=== PATIENT | male | born 1945 | race Caucasian/White ===

== ENCOUNTER → 2020-08-05 | Outpatient (CLI) | payer MEDICARE ==
[2015-05-17 01:25] VITALS: BP 138/90
[~2020-08-05] MED LIST: no home meds
== END ==
LOC: LAB 08:55
PROVIDERS: ATTEND Nurse Anesthetist, Certified Registered
DX: Z01.812 Encounter for preprocedural laboratory examination (principal); Z20.828 Contact with and (suspected) exposure to other viral communicable diseases; K42.9 Umbilical hernia without obstruction or gangrene
CPT/HCPCS: U0003

== ENCOUNTER → 2020-08-09 | Day surgery (SDC) | payer MEDICARE ==
[~2020-08-09] MED LIST changes: +ACETAMINOPHEN 500 MG TABLET PO ONE; +BUPIVACAINE-EPI 0.25%-1:200000 MPF 30 ML VIAL. ONE; +GLYCOPYRROLATE 1 MG/5 ML VIAL. ONE; +IPRATRPIUM/ALBUTEROL 0.5/2.5MG 3 ML NEBU. NEB PRN; +IV RINGERS SOLUTION,LACTATED 1,000 ML IV SCH; +LIDOCAINE 2% PF 5 ML VIAL. ONE; +MIDAZOLAM HCL PF 2 MG/2 ML VIAL. IV ONE; +MIDAZOLAM HCL PF 2 MG/2 ML VIAL. ONE; +NEOMY/BACITR/POLYMYXIN OINT PACKET. TP ONE; +NEOSTIGMINE 10 MG/10 ML VIAL. ONE; +ONDANSETRON PF 4 MG/2 ML VIAL. IV PRN; +ONDANSETRON PF 4 MG/2 ML VIAL. ONE; +PROPOFOL 10,000 MCG/ML (20ML) VIAL IV ONE; +ROCURONIUM 50 MG/5 ML VIAL. ONE; +SEVOFLURANE 31 TO 60 MINUTES. IH ONE; +SUCCINYLCHOLINE 200 MG/10 ML VIAL. ONE
--- NOTE | 2020-08-09 11:19 | PDOC1 ---
History of Present Illness Reason for Visit: Umbilical hernia repair History of Present Illness 75-year-old male with complaints of pain at the umbilicus and a small bulge is been present for a number of years Chief Complaint: Painful umbilical hernia Allergies: Coded Allergies: No Known Drug Allergies (Unverified , 05/16/15) Past Medical History Cardiac: No pertinent hx Pulmonary: No pertinent hx GI: Other (Hiatal hernia) Heme/Onc: No pertinent hx Hepatobiliary: No pertinent hx Psych: No pertinent hx Musculoskeletal: No pertinent hx Rheumatologic: No pertinent hx Infectious disease: No pertinent hx ENT: No pertinent hx Renal/: No pertinent hx Endocrine: No pertinent hx Dermatology: No pertinent hx Past Surgical History: No pertinent history Family History: No pertinent hx Past Social History Smoke: No Alcohol: none Lives: with Family Review of Systems Review Of Systems Fourteen system , review of systems has been reviewed. See HPI for pertinent positives and negative responses, other [place] all other systems are negative, non pertinent or non contributory Gastrointestinal: YES: Abdominal Pain Medications Current Medications Ondansetron HCl (Zofran) 4 mg PRN Q6HRS PRN IV Nausea, 1st Choice; Start 08/09/20 at 07:00; Stop 08/10/20 at 06:59 Albuterol/ Ipratropium (Duoneb) 3 ml 1X PRN PRN NEB Shortness of Breath; Start 08/09/20 at 07:00; Stop 08/10/20 at 06:59 Midazolam HCl (Versed) 2 mg 1X ONCE IV ; Start 08/09/20 at 07:00; Stop 08/09/20 at 07:01; Status DC Lactated Ringer's 1,000 ml @ 125 mls/hr Q8H IV Last administered on 08/09/20at 10:53; Start 08/09/20 at 07:00; Stop 08/10/20 at 06:59 Acetaminophen (Tylenol) 1,000 mg 1X ONCE PO Last administered on 08/09/20at 10:42; Start 08/09/20 at 07:30; Stop 08/09/20 at 07:31; Status DC Fentanyl Citrate (Fentanyl 2ml Vial) 100 mcg STK-MED ONCE .ROUTE ; Start 08/09/20 at 10:59; Stop 08/09/20 at 11:00; Status DC Midazolam HCl (Versed) 2 mg STK-MED ONCE .ROUTE ; Start 08/09/20 at 11:00; Stop 08/09/20 at 11:00; Status DC Cefazolin Sodium/ Dextrose 50 ml @ As Directed STK-MED ONCE IV ; Start 08/09/20 at 11:07; Stop 08/09/20 at 11:07; Status DC Active Scripts Active Reported [no home meds] No Known Medications Prior To Admisstion (Info) Each 1 Each Exam Vital Signs Vital Signs Date Time Temp Pulse Resp B/P (MAP) Pulse Ox O2 Delivery O2 Flow Rate FiO2 08/09/20 10:45 97.5 85 22 139/85 (103) 99 Room Air General Appearance: Alert, Oriented X3, Cooperative, No acute distress HEENT: Atraumatic, EOMI Respiratory: Clear to auscultation, Normal air movement Heart: Regular rate, No murmurs Abdominal: Normal bowel sounds, Soft, Other (Small umbilical hernia tender to palpation) Extremities: No edema Rectal Exam: Deferred, not indicated Skin: No significant lesion Neuro: Normal speech Psych/Mental Status: Mental status NL Assessment/Plan Assessment/Plan Umbilical hernia plan repair COURSE Allergies Coded Allergies Type Severity Reaction Last Updated Verified No Known Drug Allergies 05/16/15 No Current Medications Medications (Trade) Dose Ordered Sig/Chad Route PRN Reason Start Time Stop Time Status Last Admin Dose Admin Ondansetron HCl (Zofran) 4 mg PRN Q6HRS PRN IV Nausea, 1st Choice 08/09/20 07:00 08/10/20 06:59 Albuterol/ Ipratropium (Duoneb) 3 ml 1X PRN PRN NEB Shortness of Breath 08/09/20 07:00 08/10/20 06:59 Midazolam HCl (Versed) 2 mg 1X ONCE IV 08/09/20 07:00 08/09/20 07:01 DC Lactated Ringer's 1,000 ml @ 125 mls/hr Q8H IV 08/09/20 07:00 08/10/20 06:59 08/09/20 10:53 Acetaminophen (Tylenol) 1,000 mg 1X ONCE PO 08/09/20 07:30 08/09/20 07:31 DC 08/09/20 10:42 Fentanyl Citrate (Fentanyl 2ml Vial) 100 mcg STK-MED ONCE .ROUTE 08/09/20 10:59 08/09/20 11:00 DC Midazolam HCl (Versed) 2 mg STK-MED ONCE .ROUTE 08/09/20 11:00 08/09/20 11:00 DC Cefazolin Sodium/ Dextrose 50 ml @ As Directed STK-MED ONCE IV 08/09/20 11:07 08/09/20 11:07 DC Orders Procedure Category Date Status Time Vital Signs, Per [facility] 08/08/20 In Process Protocol 12:30 Pulse Oximetry: [facility] 08/08/20 In Process Standing Order 12:30 Reverberatory Furnace Operator [facility] 08/08/20 In Process 12:30 Elevate Head Of Bed [facility] 08/08/20 In Process 12:30 Discharge From [facility] 08/08/20 In Process Hospital 12:30 Anesthesia Adult [facility] 08/08/20 In Process Pre-Op Pr 12:30 Vital Signs, Per [facility] 08/08/20 In Process Protocol 12:30 Pulse Ox - [facility] 08/08/20 In Process Intermittent 12:30 Ondansetron Pf PHA 08/09/20 In Process (Zofran) 07:00 Ipratrpium/Albuterol PHA 08/09/20 In Process 0.5/2.5mg (Duoneb) 07:00 Midazolam Hcl Pf PHA 08/09/20 Complete (Versed) 07:00 Iv Ringers PHA 08/09/20 In Process Solution,Lactated (Iv 07:00 Acetaminophen PHA 08/09/20 Complete (Tylenol) 07:30 Fentanyl Pf (Fentanyl PHA 08/09/20 Complete 2ml Vial) 10:59 Midazolam Hcl Pf PHA 08/09/20 Complete (Versed) 11:00 Cefazolin 2gm Premix PHA 08/09/20 Complete (Ancef 2gm Premix) 11:07 Vital Signs Date Time Temp Pulse Resp B/P (MAP) Pulse Ox O2 Delivery O2 Flow Rate FiO2 08/09/20 10:45 97.5 85 22 139/85 (103) 99 Room Air Justification of Admission: Justification of Admission: Justification of Admission Dx: N/A CASTRO SPANGLER MD Aug 09, 2020 11:19
--- NOTE | 2020-08-09 11:58 | PDOC4 ---
Operative Report DATE August 092020 at 11 55 Preop Diagnosis Umbilical hernia Post-op Diagnosis Same Operation Performed Umbilical hernia repair Dictation: Patient is 75-year-old male with umbilical hernia procedure of umbilical hernia repair was explained to the patient detail was benefits were also discussed including bleeding infection alternatives to this procedure also discussed with patient who seemed to understand and gave a verbal written consent to have the procedure performed. Patient was taken to the operating room placed in the supine position general anesthesia was initiated once patient was sleeping in bed his abdomen was prepped and draped usual sterile fashion using ChloraPrep. Area around the umbilicus was injected with quarter percent Marcaine with epinephrine incision was made with 15 blade scalpel just below the umbilicus this carried down through subcutaneous tissues electrocautery right hemostasis tell the fascial defect was visualized. Hernia sac was excised and the fascial defect was closed with a running 0 Vicryl suture. He was reapproximated with 4-0 subcuticular Monocryl Mastisol Steri-Strips and a tonsil sponge were placed in the umbilicus and this was dressed with an island dressing. Patient was awakened and extubated in the operating room taken to rec overy in stable condition all sponge instrument needle counts listed as correct estimated blood loss less than 5 mL. Surgeon Lamont Anesthesiologist General endotracheal anesthesia ANESTHESIA PROPOSED: GENERAL Blood Loss 5 mL Specimen None Complications None CASTRO SPANGLER MD Aug 09, 2020 11:58
--- NOTE | 2020-08-09 12:00 | DISCH ---
DISCHARGE INSTRUCTIONS-DC Condition on Discharge Condition on Discharge: Stable Activity after Discharge Activity Instructions for Disc: Avoid exertion Other activity instructions: No lifting more than 20 pounds for 2 weeks Diet after Discharge Diet after Discharge: Regular Wound/Incision Care Other wound/incision instructi: May shower in 24 hours Contacting the DRChong after DC Call your doctor for: If your condition worsens Follow-Up Follow up with: Dr. Spangler in 2 weeks CASTRO SPANGLER MD Aug 09, 2020 12:00
[2020-08-09 12:58] VITALS: BP 125/86
== END | disposition home or self-care (01) ==
LOC: SURG 10:24
PROVIDERS: ATTEND Surgery
DX: K42.9 Umbilical hernia without obstruction or gangrene (principal); N40.0 Benign prostatic hyperplasia without lower urinary tract symptoms; K21.9 Gastro-esophageal reflux disease without esophagitis; Z79.899 Other long term (current) drug therapy; Z87.442 Personal history of urinary calculi; Z98.890 Other specified postprocedural states
CPT/HCPCS: 49585; J0330; J0696; J2001; J2250; J2405; J2704; J2710; J3010; J3490; J7120

== ENCOUNTER → 2020-10-03 | Outpatient (CLI) | payer MEDICARE ==
[2020-08-09 12:58] VITALS: BP 125/86
[~2020-10-03] MED LIST changes: -ACETAMINOPHEN 500 MG TABLET PO ONE; -BUPIVACAINE-EPI 0.25%-1:200000 MPF 30 ML VIAL. ONE; -GLYCOPYRROLATE 1 MG/5 ML VIAL. ONE; -IPRATRPIUM/ALBUTEROL 0.5/2.5MG 3 ML NEBU. NEB PRN; -IV RINGERS SOLUTION,LACTATED 1,000 ML IV SCH; -LIDOCAINE 2% PF 5 ML VIAL. ONE; -MIDAZOLAM HCL PF 2 MG/2 ML VIAL. IV ONE; -MIDAZOLAM HCL PF 2 MG/2 ML VIAL. ONE; -NEOMY/BACITR/POLYMYXIN OINT PACKET. TP ONE; -NEOSTIGMINE 10 MG/10 ML VIAL. ONE; -ONDANSETRON PF 4 MG/2 ML VIAL. IV PRN; -ONDANSETRON PF 4 MG/2 ML VIAL. ONE; -PROPOFOL 10,000 MCG/ML (20ML) VIAL IV ONE; -ROCURONIUM 50 MG/5 ML VIAL. ONE; -SEVOFLURANE 31 TO 60 MINUTES. IH ONE; -SUCCINYLCHOLINE 200 MG/10 ML VIAL. ONE
--- NOTE | 2020-10-03 13:01 | RAD ---
EXAM: CT Abdomen and Pelvis without IV contrast CLINICAL HISTORY: Abdominal pain. COMPARISON: none TECHNIQUE: Helical CT of the abdomen and pelvis without intravenous contrast. Axial, coronal and sagi ttal reformatted images were generated. PQRS compliance statement - One or more of the following individualized dose reduction techniques wer e utilized for this study: 1. Automated exposure control 2. Adjustment of the mA and/or kV according to patient size 3. Use of iterative reconstruction technique FINDINGS: Lack of intravenous contrast limits evaluation of solid organs, vasculature, and lymph nodes. Lower chest: Small hiatal hernia. Coronary calcifications are seen. Abdomen and Pelvis: No focal liver lesion. Gallbladder is normal. No biliary dilatation. Pancreas is unremarkable. Spleen is normal in appearance. Adrenal glands are unremarkable. Bilateral renal cysts are seen. 5 mm nonobstructing left interpolar renal calculus. Infiltration is s een about the right ureter to the level of a 6 mm calculus in the distal right ureter with mild right hydronephrosis and proximal right hydroureter. Bladder wall thickening may be seen with chronic outlet obstruction, prostate measures approximately 6.5 cm in transverse dimension, or cystitis and can be correlated with urinalysis. Moderate colonic stool content is seen. No small or large bowel dilatation. No bowel obstruction. Fat-containing inguinal hernias are seen bilaterally. Trace fat-containing periumbilical hernia. No abdominal or pelvic ascites. Ectasia of the infrarenal abdominal aorta. Aneurysmal dilatation of t he common iliac arteries bilaterally, and on the left the common iliac artery measures 2 cm on the ri ght measures 1.7 cm. Bones: Hip joint degenerative changes are seen. Degenerative changes of the lower lumbar spine are noted. No aggressive osseous lesion is seen. IMPRESSION: 1. 6 mm calculus within the distal right ureter with mild right hydronephrosis and hydroureter 2. Nonobstructing left lower pole renal calculus. 3. Bilateral renal cysts are seen including a 7.8 cm left lower pole cyst. Given size, further evalu ation with ultrasound is recommended to exclude underlying solid component or complex appearance. 4. Common iliac artery aneurysms bilaterally measuring up to 2 cm on the left and 1.7 cm on the righ t Electronically signed by: Singh Ribera MD (10/03/2020 12:59 PM) [id number]
== END ==
LOC: RAD 12:24
PROVIDERS: ATTEND Family Medicine
DX: K40.90 Unilateral inguinal hernia, without obstruction or gangrene, not specified as recurrent (principal); N28.1 Cyst of kidney, acquired; N20.0 Calculus of kidney; N13.30 Unspecified hydronephrosis; I70.0 Atherosclerosis of aorta; I25.10 Atherosclerotic heart disease of native coronary artery without angina pectoris; I72.3 Aneurysm of iliac artery; M16.0 Bilateral primary osteoarthritis of hip; M47.816 Spondylosis without myelopathy or radiculopathy, lumbar region
CPT/HCPCS: 74176

== ENCOUNTER 2020-12-05 18:05 | Emergency (ER) | payer MEDICARE ==
[~2020-12-05] VITALS: Ht 182.9 cm; Wt 85.0 kg
[2020-12-05] MEDS ORDERED: IV NORMAL SALINE 1,000ML 1,000 ML IV ONE (18:30)
[2020-12-05] MEDS ORDERED: ONDANSETRON PF 4 MG/2 ML VIAL. IVP ONE (18:30)
--- NOTE | 2020-12-05 18:42 | PHYS DOC ---
Past History Past Medical History: Constipation, GERD, Kidney Stones Past Surgical History: Other Additional Past Surgical Histo: hernia repair Alcohol Use: Rarely Drug Use: None General Adult EDM: Chief Complaint: ABDOMINAL PAIN HPI: HPI: 75-year-old male presents with left lower quadrant abdominal pain. He started having abdominal pain 4 days ago. It has been intermittent. Today it was more frequent and greater than 8 out of 10. He feels like his abdomen is more distended than normal. Patient is also had a cough that developed yesterday and today. The abdominal pain has radiated up into his chest a few times today. He currently does not have chest pain. He has had chills but no measured fever. He has a history of kidney stones. No history of diverticulitis. The patient has not been vaccinated for COVID-19. He does not believe he has had COVID-19. Review of Systems: Review of Systems: Constitutional: Chills Eyes: Denies change in visual acuity HENT: Denies nasal congestion or sore throat Respiratory: Cough without shortness of breath Cardiovascular: Denies chest pain or edema GI: Left lower quadrant abdominal pain, Denies nausea, vomiting, bloody stools or diarrhea : Denies dysuria Musculoskeletal: Denies back pain or joint pain Integument: Denies rash Neurologic: Denies headache, focal weakness or sensory changes Endocrine: Denies polyuria or polydipsia Lymphatic: Denies swollen glands Psychiatric: Denies depression or anxiety Allergies: Allergies: Allergies Coded Allergies Type Severity Reaction Last Updated Verified No Known Drug Allergies 05/16/15 No Physical Exam: PE: Constitutional: Well developed, well nourished, no acute distress, non-toxic appearance. [] HENT: Normocephalic, atraumatic, bilateral external ears normal, oropharynx moist, no oral exudates, nose normal. [] Eyes: PERRLA, EOMI, conjunctiva normal, no discharge. [] Neck: Normal range of motion, no tenderness, supple, no stridor. [] Cardiovascular: Heart rate regular rhythm, no murmur [] Lungs & Thorax: Bilateral breath sounds clear to auscultation [] Abdomen: Bowel sounds normal, soft, LLQ tenderness, no masses, no pulsatile masses. [] Skin: Warm, dry, no erythema, no rash. [] Back: No tenderness, no CVA tenderness. [] Extremities: No tenderness, no cyanosis, no clubbing, ROM intact, no edema. [] Neurologic: Alert and oriented X 3, normal motor function, normal sensory function, no focal deficits noted. [] Psychologic: Affect normal, judgement normal, mood normal. [] Current Patient Data: Vital Signs: Vital Signs Date Time Temp Pulse Resp B/P (MAP) Pulse Ox O2 Delivery O2 Flow Rate FiO2 12/05/20 18:15 98.5 83 18 178/118 (138) 96 Room Air EKG: EKG: [] Radiology/Procedures: Radiology/Procedures: [] Impressions: CT ABDOMEN+PELVIS W History: LLQ pain Comparison: 10/03/2020 Technique: After administration of intravenous contrast, helical CT of the abdomen and pelvis was performed from the lung bases through the ischial tuberosities. Coronal and sagittal reconstructions were obtained. 53 mL of Omnipaque 300 were used. One or more of the following dose reduction techniques were utilized: Automated exposure control (AEC), Adjustment of mA and/or kV acco rding to patient size, Use of iterative reconstruction technique such as ASiR, CT scan done according to ALARA and image gently/image wisely Abdomen Findings: The visualized lung bases are clear. Cardiomegaly. Small hiatal hernia The liver, gallbladder, pancreas, spleen, and bilateral adrenal glands are normal. Mild right hydroureteronephrosis with a 5 x 4 mm calculus in the distal ureter approximately 1 cm from the bladder, previously 1.5 cm from the bladder. Couple of additional punctate calcifications at the right ureterovesicular junction. Right ureter and renal pelvis urothelial enhancement. 5 mm calculus at the left ureterovesicular junction. Additional nonobstructive left renal 5 mm calculus. Stable left renal cysts The visualized loops of small bowel are normal. The visualized loops of large bowel are normal. There is no evidence of bowel obstruction. Appendix is not se en. There is no free fluid. There is no mesenteric or retroperitoneal adenopathy. The abdominal aorta is normal in caliber. Pelvis Findings: Circumferential bladder wall thickening. Prostatomegaly. No pelvic free fluid. There is no pelvic or inguinal adenopathy. Degenerative changes of the spine. IMPRESSION: 1. New 5 mm calculus at the left ureterovesicular junction. No left hydronephrosis. 2. Previously seen right distal ureteral calculus has slightly progressed towards the bladder. Few additional punctate calcifications at the right ureterovesicular junction. Mild right hydroureteronephrosis. 3. Urothelial enhancement of the right ureter and right renal pelvis, which could represent ureteritis/pyelitis. 4. Circumferential bladder wall thickening may represent cystitis or obstructive muscular hypertrophy, given prostatomegaly. Electronically signed by: Robert Aguilar MD (12/05/2020 8:45 PM) [facility] DICTATED AND SIGNED BY: ROBERT AGUILAR MD DATE: 12/05/202031 CC: YOSEF CARLOS MD; SHAWANDA OLIVEROS DO ~MTH0 0 EXAM: Chest, single view. HISTORY: Pain COMPARISON: None. FINDINGS: A frontal view of the chest is obtained. There is suspected bilateral lower lobe atelectasis. There is no consolidation, pleural effusion or pneumothorax. The heart is prominent in size, likely accentuated due to portable technique. There is mild elevation of the right hemidiaphragm which may be positional IMPRESSION: No acute pulmonary finding. Electronically signed by: Nasra Higgins MD (12/05/2020 7:18 PM) [facility] DICTATED AND SIGNED BY: NASRA HIGGINS MD DATE: 12/05/201916 CC: YOSEF CARLOS MD; SHAWANDA OLIVEROS DO ~MTH0 0 Heart Score: C/O Chest Pain: No Risk Factors: Risk Factors: DM, Current or recent (<one month) smoker, HTN, HLP, family history of CAD, obesity. Risk Scores: Score 0 - 3: 2.5% MACE over next 6 weeks - Discharge Home Score 4 - 6: 20.3% MACE over next 6 weeks - Admit for Clinical Observation Score 7 - 10: 72.7% MACE over next 6 weeks - Early Invasive Strategies Course & Med Decision Making: Course & Med Decision Making Pertinent Labs and Imaging studies reviewed. (See chart for details) The patient's labs are unremarkable. His chest x-ray is unremarkable. His urinalysis is negative for infection. His CT scan shows multiple kidney stones as well as stones in the urethra bilaterally. No hydronephrosis. See official read for more details. I have strongly recommended the patient follow-up with urology tomorrow. I will discharge her with a prescription for Paradise 5/325. He is stable for discharge at this time. [] Dragon Disclaimer: Dragon Disclaimer: This electronic medical record was generated, in whole or in part, using a voice recognition dictation system. Departure Departure: Impression: Primary Impression: Kidney stones Additional Impression: Ureterolithiasis Disposition: HOME / SELF CARE / HOMELESS Condition: STABLE Referrals: YOSEF CARLOS MD (PCP) Patient Instructions: Kidney Stones, [id number] Scripts Hydrocodone/Acetaminophen (Hydrocodone-Acetamin 5-325 mg) 1 Each Tablet 1-2 EACH PO Q6HRS PRN for PAIN, #20 TAB Prov: SHAWANDA OLIVEROS DO 12/05/20 SHAWANDA OLIVEROS DO December 05, 2020 18:42
[2020-12-05 19:07] LABS: BASO % 0 % (0-3); EOS % 0 % (0-3); HEMATOCRIT 49.7 % (39.0-53.0); HEMOGLOBIN 16.9 g/dL (13.0-17.5); LYMPH # 1.8 x10^3/uL (1.0-4.8); LYMPH % 20 % (24-48); MEAN CORPUSCULAR HEMOGLOBIN 32 pg (25-35); MEAN CORPUSCULAR HGB CONC 34 g/dL (31-37); MEAN CORPUSCULAR VOLUME 93 fL (79-100); MONO # 0.5 x10^3/uL (0.0-1.1); MONO % 6 % (0-9); NEUT # 6.6 x10^3uL (1.8-7.7); NEUT % 73 % (31-73); PLATELET COUNT 128 x10^3/uL (140-400); RED BLOOD COUNT 5.35 x10^6/uL (4.30-5.70); RED CELL DISTRIBUTION WIDTH 13.9 % (11.5-14.5)
[2020-12-05 19:11] LABS: CALCIUM 9.2 mg/dL (8.5-10.1); CREATININE 1.2 mg/dL (0.7-1.3); GFR 59.3; POTASSIUM 3.8 mmol/L (3.5-5.1)
[2020-12-05] MEDS ORDERED: IOHEXOL 300 MG/ML 75 ML VIAL. IV ONE (19:15)
[2020-12-05 19:17] LABS: ALBUMIN 3.9 g/dL (3.4-5.0); ALBUMIN/GLOBULIN RATIO 1.3 (1.0-1.7); TOTAL BILIRUBIN 0.8 mg/dL (0.2-1.0); TOTAL PROTEIN 6.9 g/dL (6.4-8.2)
--- NOTE | 2020-12-05 19:20 | RAD ---
EXAM: Chest, single view. HISTORY: Pain COMPARISON: None. FINDINGS: A frontal view of the chest is obtained. There is suspected bilateral lower lobe atelectasi s. There is no consolidation, pleural effusion or pneumothorax. The heart is prominent in size, likel y accentuated due to portable technique. There is mild elevation of the right hemidiaphragm which may be positional IMPRESSION: No acute pulmonary finding. Electronically signed by: Nasra Tejeda MD (12/05/2020 7:18 PM) [facility]
[2020-12-05 19:30] LABS: BACTERIA,URINE 0 /HPF (0-FEW); BILIRUBIN,URINE NEG (NEG); CLARITY,URINE CLEAR; COLOR,URINE YELLOW; GLUCOSE,URINE NEG (NEG); NITRITE,URINE NEG (NEG); UROBILINOGEN,URINE 0.2 mg/dL (0.2 mg/dL); WBC,URINE 0 /HPF (0-4)
--- NOTE | 2020-12-05 20:47 | RAD ---
CT ABDOMEN+PELVIS W History: LLQ pain Comparison: 10/03/2020 Technique: After administration of intravenous contrast, helical CT of the abdomen and pelvis was per formed from the lung bases through the ischial tuberosities. Coronal and sagittal reconstructions wer e obtained. 53 mL of Omnipaque 300 were used. One or more of the following dose reduction techniques were utilized: Automated exposure control (AEC), Adjustment of mA and/or kV according to patient size , Use of iterative reconstruction technique such as ASiR, CT scan done according to ALARA and image g ently/image wisely Abdomen Findings: The visualized lung bases are clear. Cardiomegaly. Small hiatal hernia The liver, gallbladder, pancreas, spleen, and bilateral adrenal glands are normal. Mild right hydroureteronephrosis with a 5 x 4 mm calculus in the distal ureter approximately 1 cm fro m the bladder, previously 1.5 cm from the bladder. Couple of additional punctate calcifications at th e right ureterovesicular junction. Right ureter and renal pelvis urothelial enhancement. 5 mm calculus at the left ureterovesicular junction. Additional nonobstructive left renal 5 mm calcul us. Stable left renal cysts The visualized loops of small bowel are normal. The visualized loops of large bowel are normal. There is no evidence of bowel obstruction. Appendix is not seen. There is no free fluid. There is no mesenteric or retroperitoneal adenopathy. The abdominal aorta is normal in caliber. Pelvis Findings: Circumferential bladder wall thickening. Prostatomegaly. No pelvic free fluid. There is no pelvic or inguinal adenopathy. Degenerative changes of the spine. IMPRESSION: 1. New 5 mm calculus at the left ureterovesicular junction. No left hydronephrosis. 2. Previously seen right distal ureteral calculus has slightly progressed towards the bladder. Few ad ditional punctate calcifications at the right ureterovesicular junction. Mild right hydroureteronephr osis. 3. Urothelial enhancement of the right ureter and right renal pelvis, which could represent ureteriti s/pyelitis. 4. Circumferential bladder wall thickening may represent cystitis or obstructive muscular hypertrophy , given prostatomegaly. Electronically signed by: Stephan Aguilar MD (12/05/2020 8:45 PM) [facility]
[2020-12-05 23:30] VITALS: BP 159/100
--- NOTE | 2020-12-05 23:33 | EKG ---
[address] [address] Test Date: 2020-12-05 Test Time: 18:26:05 Pat Name: MOE PURCELL Department: Room: Gender: M Rim Technician: : [id number] Requested By: SHAWANDA OLIVEROS Order Number: [id number] Reading MD: Measurements Intervals Marshall Rate: 85 P: 8 WV: 176 QRS: -10 QRSD: 86 T: 18 QT: 388 QTc: 462 Interpretive Statements SINUS RHYTHM LEFTWARD AXIS OTHERWISE NORMAL ECG RI6.02 No previous ECG available for comparison
[2020-12-05] MEDS ORDERED: HYDR-2759 PO (23:40)
[2020-12-05] MEDS ORDERED: CONTRAST GIVEN. MC PRN (23:45)
[2020-12-05] MEDS ORDERED: HYDROcodone/APAP 7.5/325MG 1 TAB TABLET ONE (23:45)
[2020-12-06] MEDS ORDERED: HYDROcodone/APAP 7.5/325MG 1 TAB TABLET PO ONE
== END 2020-12-05 23:56 | disposition home or self-care (01) ==
LOC: ER 18:05
DX: N20.2 Calculus of kidney with calculus of ureter (principal); K21.9 Gastro-esophageal reflux disease without esophagitis
CPT/HCPCS: 36415; 71045; 74177; 80053; 81001; 84484; 85025; 93005; 96361; 96374; 99285; J2405; J7030; Q9967

== ENCOUNTER 2021-06-13 15:17 | Emergency (ER) | payer MEDICARE ==
[~2021-06-13] VITALS: Ht 182.9 cm; Wt 84.5 kg
[~2021-06-13 15:17] MED LIST changes: +HYDR-2759 PO
--- NOTE | 2021-06-13 15:59 | PHYS DOC ---
Past History Past Medical History: Constipation, GERD, Kidney Stones (RAGHAV DENIS) Past Surgical History: Other Additional Past Surgical Histo: hernia repair (RAGHAV DENIS) Alcohol Use: Rarely Drug Use: None (RAGHAV DENIS) General Adult EDM: Chief Complaint: FLANK PAIN HPI: HPI: Patient is a 75 year old male with history of constipation and renal stones who presents with left-sided flank pain that began last night. Patient states at its worst, the pain was 10 out of 10, but it has completely resolved today. Patient took 2 oxycodone last night, which is why he believes he is no longer in pain. Patient did visit his primary care provider today, who noticed a minor amount of blood in his urine and advised that he come to the emergency department for further evaluation. Patient reports associated nausea, and has not been able to eat today. Patient denies fever, chills, weakness, abdominal pain, emesis, diarrhea, dysuria. (RAGHAV DENIS) Review of Systems: Review of Systems: ROS negative except as mentioned in HPI. (RAGHAV DENIS) Current Medications: Current Meds: Current Medications Medications (Trade) Dose Ordered Sig/Chad Start Time Stop Time Status Last Admin Dose Admin Ondansetron HCl (Zofran) 4 mg 1X ONCE 06/13/21 16:00 06/13/21 16:01 Sodium Chloride 1,000 ml @ 1,000 mls/hr 1X ONCE 06/13/21 16:00 06/13/21 16:59 (RAGHAV DENIS) Allergies: Allergies: Allergies Coded Allergies Type Severity Reaction Last Updated Verified No Known Drug Allergies 06/13/21 No (RAGHAV DENIS) Physical Exam: PE: Constitutional: Well developed, well nourished, no acute distress, non-toxic appearance. Cardiovascular: Heart rate regular rhythm, no murmur. Lungs & Thorax: Bilateral breath sounds clear to auscultation. Abdomen: Bowel sounds normal, soft, no tenderness, no masses, no pulsatile masses. Skin: Warm, dry, no erythema, no rash. Back: No tenderness, no CVA tenderness. [] (RAGHAV DENIS) Current Patient Data: Labs: Laboratory Tests Test 06/13/21 15:45 06/13/21 15:56 Urine Collection Type Void Urine Color Yellow Urine Clarity Clear Urine pH 5.5 Urine Specific [place] 1.020 Urine Protein Neg (NEG-TRACE) Urine Glucose (UA) Neg mg/dL (NEG) Urine Ketones (Stick) 15 mg/dL (NEG) Urine Blood Trace (NEG) Urine Nitrite Neg (NEG) Urine Bilirubin Neg (NEG) Urine Urobilinogen Dipstick 0.2 mg/dL (0.2 mg/dL) Urine Leukocyte Esterase Neg (NEG) Urine RBC 3-5 /HPF (0-2) Urine WBC Occ /HPF (0-4) Urine Squamous Epithelial Cells Few /LPF Urine Bacteria 0 /HPF (0-FEW) Urine Mucus Mod /LPF White Blood Count 7.0 x10^3/uL (4.0-11.0) Red Blood Count 5.33 x10^6/uL (4.30-5.70) Hemoglobin 16.8 g/dL (13.0-17.5) Hematocrit 50.5 % (39.0-53.0) Mean Corpuscular Volume 95 fL (79-100) Mean Corpuscular Hemoglobin 31 pg (25-35) Mean Corpuscular Hemoglobin Concent 33 g/dL (31-37) Red Cell Distribution Width 14.2 % (11.5-14.5) Platelet Count 140 x10^3/uL (140-400) Neutrophils (%) (Auto) 69 % (31-73) Lymphocytes (%) (Auto) 25 % (24-48) Monocytes (%) (Auto) 5 % (0-9) Eosinophils (%) (Auto) 0 % (0-3) Basophils (%) (Auto) 0 % (0-3) Neutrophils # (Auto) 4.8 x10^3uL (1.8-7.7) Lymphocytes # (Auto) 1.7 x10^3/uL (1.0-4.8) Monocytes # (Auto) 0.4 x10^3/uL (0.0-1.1) Eosinophils # (Auto) 0.0 x10^3/uL (0.0-0.7) Basophils # (Auto) 0.0 x10^3/uL (0.0-0.2) Sodium Level 139 mmol/L (136-145) Potassium Level 3.8 mmol/L (3.5-5.1) Chloride Level 102 mmol/L (98-107) Carbon Dioxide Level 26 mmol/L (21-32) Anion Gap 11 (6-14) Blood Urea Nitrogen 20 mg/dL (8-26) Creatinine 1.3 mg/dL (0.7-1.3) Estimated GFR (Cockcroft-Gault) 54.1 BUN/Creatinine Ratio 15 (6-20) Glucose Level 96 mg/dL (70-99) Calcium Level 9.5 mg/dL (8.5-10.1) Total Bilirubin 1.1 mg/dL (0.2-1.0) Aspartate Amino Transf (AST/SGOT) 19 U/L (15-37) Alanine Aminotransferase (ALT/SGPT) 28 U/L (16-63) Alkaline Phosphatase 101 U/L (46-116) Total Protein 7.5 g/dL (6.4-8.2) Albumin 3.9 g/dL (3.4-5.0) Albumin/Globulin Ratio 1.1 (1.0-1.7) Vital Signs: Vital Signs Date Time Temp Pulse Resp B/P (MAP) Pulse Ox O2 Delivery O2 Flow Rate FiO2 06/13/21 15:34 98.6 83 18 149/112 (124) 97 Room Air ([facility] Radiology/Procedures: Radiology/Procedures: PROCEDURE: CT ABDOMEN PELVIS WO CONTRAST EXAM: CT ABDOMEN/PELVIS WITHOUT CONTRAST. HISTORY: Left flank pain. TECHNIQUE: Computed tomography of the abdomen and pelvis was performed without intravenous contrast. One or more of the following individualized dose reduction techniques were utilized for this examination: 1. Automated exposure control. 2. Adjustment of the mA and/or kV according to patient size. 3. Use of iterative reconstruction technique. COMPARISON: 321. FINDINGS: Lung windows through the visualized portions of the bases reveal mild atelectasis. There are diffuse coronary atherosclerotic calcifications. Bone windows reveal no suspicious lesions. There is a small hiatal hernia. Hypoattenuation of the hepatic parenchyma indicates diffuse hepatic steatosis. The pancreas, adrenal glands and gallbladder are unremarkable. The distal abdominal aorta is mildly ectatic at 2.4 cm. The right common iliac artery is aneurysmal at 2.1 cm. The left measures 2.2 cm. The left internal iliac artery is aneurysmal at 2.3 cm. The right also demonstrates fusiform ectasia with diameter 1.5 cm. A small right inguinal hernia contains only fat. There is no small bowel obstruction. There is no evidence of appendicitis. A left proximal ureteral calculus measures 5 mm. There is mild left hydronephrosis. An additional left renal calculus measures 2 mm in the interpolar region. There are no right renal or ureteral calculi. Multiple calculi layer dependently within the bladder on the right. These measure up to 5 mm. A benign cyst at the left renal lower pole measures 7.9 cm. Another anteriorly at the upper pole measures 5.7 cm. There are no clearly suspicious renal lesions without contrast. The prostate is moderately to sev erely enlarged at 6.4 x 5.5 cm. A prominent median lobe impresses on the bladder base. There is moderate bladder wall thickening. IMPRESSION: 1. 5 mm left proximal ureteral calculus with mild left hydronephrosis. 2. 2 mm left renal calculus. 3. Multiple small bladder calculi measure up to 5 mm. 4. Moderate to severe benign prostatic hypertrophy. Nonfocal bladder wall thickening suggests chronic outlet obstruction or inflammation. 5. Aneurysmal dilatation of both common iliac arteries and internal iliac ar teries. 6. Diffuse hepatic steatosis. 7. Small hiatal and right inguinal hernias as above. Electronically signed by: Noah Mcdonnell MD (06/13/2021 4:29 PM) [facility] (RAGHAV DENIS) Heart Score: C/O Chest Pain: No (RAHGAV DENIS) Course & Med Decision Making: Course & Med Decision Making Pertinent Labs and Imaging studies reviewed. (See chart for details) Patient reports several kidney stones in the past, and states this feels similar. We will perform urinalysis, blood work, CT plain abdomen pelvis to evaluate for renal lithiasis. Patient states that he used to be on medication for high blood pressure, but has not been prescribed for "a long time." CT imaging shows multiple renal stones throughout the urinary tract. The largest is 5 mm, which will likely pass on its own. Patient will be discharged home with Zofran. He is instructed to drink plenty of water to help the stones passed. He reports that he has pain medication at home that he can take if ibuprofen or naproxen are not sufficient for pain management. Patient should f ollow with urology in the next week. Additionally, bilateral aneurysms are seen in the iliac arteries. Patient advised to follow-up with debt collection specialist. Patient's blood pressure was elevated in the department; advised him to follow-up with primary care and/or cardiology for further evaluation management. Patient was provided with a gastroenterology referral for his h iatal hernia and GERD. Patient understands and is agreeable to discharge plan. (RAGHAV DENIS) Course & Med Decision Making I was the Attending physician on the above date of service of this patient. This patient was evaluated, examined, treated, and dispositioned from the emergency department by the mid-level practitioner. Although I was working at the time , no assistance was requested. Electronically signed, Mandy Peñaloza DO (MANDY PEÑALOZA DO) Hebert Disclaimer: Hebert Disclaimer: This electronic medical record was generated, in whole or in part, using a voice recognition dictation system. 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 Please make an appointment with your urologist for follow-up in the next week. You may also follow-up with him if your pain does not improve. Additionally, CT showed that you have bilateral dilation of your iliac arteries, consistent with aneurysm. This is not emergent, but you should follow-up with cardiology for further evaluation and management. A hiatal hernia, where a portion of your stomach can slide through your diaphragm, was also seen. You should follow with gastroenterology for further treatment. Please return to the emergency department if your symptoms worsen or you develop new symptoms. Scripts Ondansetron (ONDANSETRON ODT) 4 Mg Tab.rapdis 1 TAB PO PRN Q6-8HRS for nausea, #16 TAB Prov: RAGHAV DENIS 06/13/21 RAGHAV DENIS Jun 13, 2021 15:59 MANDY PEÑALOZA DO Jun 14, 2021 06:58
[2021-06-13] MEDS ORDERED: ONDANSETRON PF 4 MG/2 ML VIAL. IVP ONE (16:00)
[2021-06-13] MEDS ORDERED: IV NORMAL SALINE 1,000ML 1,000 ML IV ONE (16:00)
[2021-06-13 16:21] LABS: CLARITY,URINE CLEAR; COLOR,URINE YELLOW
[2021-06-13 16:22] LABS: BACTERIA,URINE 0 /HPF (0-FEW); BILIRUBIN,URINE NEG (NEG); GLUCOSE,URINE NEG (NEG); NITRITE,URINE NEG (NEG); SQUAMOUS EPITHELIAL CELL,UR FEW /LPF; UROBILINOGEN,URINE 0.2 mg/dL (0.2 mg/dL); WBC,URINE OCC /HPF (0-4)
--- NOTE | 2021-06-13 16:32 | RAD ---
EXAM: CT ABDOMEN/PELVIS WITHOUT CONTRAST. HISTORY: Left flank pain. TECHNIQUE: Computed tomography of the abdomen and pelvis was performed without intravenous contrast. One or more of the following individualized dose reduction techniques were utilized for this examinat ion: 1. Automated exposure control. 2. Adjustment of the mA and/or kV according to patient size. 3. Use of iterative reconstruction technique. COMPARISON: 321. FINDINGS: Lung windows through the visualized portions of the bases reveal mild atelectasis. There ar e diffuse coronary atherosclerotic calcifications. Bone windows reveal no suspicious lesions. There is a small hiatal hernia. Hypoattenuation of the hepatic parenchyma indicates diffuse hepatic s teatosis. The pancreas, adrenal glands and gallbladder are unremarkable. The distal abdominal aorta is mildly ectatic at 2.4 cm. The right common iliac artery is aneurysmal a t 2.1 cm. The left measures 2.2 cm. The left internal iliac artery is aneurysmal at 2.3 cm. The right also demonstrates fusiform ectasia with diameter 1.5 cm. A small right inguinal hernia contains only fat. There is no small bowel obstruction. There is no axel dence of appendicitis. A left proximal ureteral calculus measures 5 mm. There is mild left hydronephrosis. An additional lef t renal calculus measures 2 mm in the interpolar region. There are no right renal or ureteral calculi . Multiple calculi layer dependently within the bladder on the right. These measure up to 5 mm. A benig n cyst at the left renal lower pole measures 7.9 cm. Another anteriorly at the upper pole measures 5. 7 cm. There are no clearly suspicious renal lesions without contrast. The prostate is moderately to s everely enlarged at 6.4 x 5.5 cm. A prominent median lobe impresses on the bladder base. There is mod erate bladder wall thickening. IMPRESSION: 1. 5 mm left proximal ureteral calculus with mild left hydronephrosis. 2. 2 mm left renal calculus. 3. Multiple small bladder calculi measure up to 5 mm. 4. Moderate to severe benign prostatic hypertrophy. Nonfocal bladder wall thickening suggests chronic outlet obstruction or inflammation. 5. Aneurysmal dilatation of both common iliac arteries and internal iliac arteries. 6. Diffuse hepatic steatosis. 7. Small hiatal and right inguinal hernias as above. Electronically signed by: Noah Mcdonnell MD (06/13/2021 4:29 PM) [facility]
[2021-06-13 16:38] LABS: BASO % 0 % (0-3); EOS % 0 % (0-3); HEMATOCRIT 50.5 % (39.0-53.0); HEMOGLOBIN 16.8 g/dL (13.0-17.5); LYMPH # 1.7 x10^3/uL (1.0-4.8); LYMPH % 25 % (24-48); MEAN CORPUSCULAR HEMOGLOBIN 31 pg (25-35); MEAN CORPUSCULAR HGB CONC 33 g/dL (31-37); MEAN CORPUSCULAR VOLUME 95 fL (79-100); MONO # 0.4 x10^3/uL (0.0-1.1); MONO % 5 % (0-9); NEUT # 4.8 x10^3uL (1.8-7.7); NEUT % 69 % (31-73); PLATELET COUNT 140 x10^3/uL (140-400); RED BLOOD COUNT 5.33 x10^6/uL (4.30-5.70); RED CELL DISTRIBUTION WIDTH 14.2 % (11.5-14.5)
[2021-06-13 16:48] LABS: CALCIUM 9.5 mg/dL (8.5-10.1); CREATININE 1.3 mg/dL (0.7-1.3); GFR 54.1; POTASSIUM 3.8 mmol/L (3.5-5.1)
[2021-06-13 16:53] LABS: ALBUMIN 3.9 g/dL (3.4-5.0); ALBUMIN/GLOBULIN RATIO 1.1 (1.0-1.7); TOTAL BILIRUBIN 1.1 mg/dL (0.2-1.0); TOTAL PROTEIN 7.5 g/dL (6.4-8.2)
[2021-06-13] MEDS ORDERED: ONDA4TAB12 PO (17:05)
[2021-06-13 17:40] VITALS: BP 168/100
== END 2021-06-13 17:41 | disposition home or self-care (01) ==
LOC: ER 15:17
DX: N13.2 Hydronephrosis with renal and ureteral calculous obstruction (principal); I72.3 Aneurysm of iliac artery; K21.9 Gastro-esophageal reflux disease without esophagitis; Z87.442 Personal history of urinary calculi
CPT/HCPCS: 36415; 74176; 80053; 81001; 85025; 96361; 96374; 99284; J2405; J7030